=== PATIENT | female | born 1950 | race Caucasian/White ===

== ENCOUNTER → 2020-01-24 11:46 | Outpatient (CLI) | payer MEDICARE, OTHER, SELFPAY | PROVIDERS: PCP Family Medicine; Referring Provider Nurse Practitioner Family; Visit Provider Nurse Practitioner Family | DX: Z11.59 Encounter for screening for other viral diseases (principal) | CPT/HCPCS: 87635; G2023; U0003 ==

== ENCOUNTER → 2024-07-17 | Outpatient (CLI) | payer MEDICARE, OTHER, SELFPAY ==
--- NOTE | 2024-07-17 09:52 | NM_ITS ---
CLINICAL: 73-year-old female with history of hypercalcemia, clinical hyperparathyroidism. 99m Tc SESTAMIBI DUAL PHASE PARATHYROID SCINTIGRAPHY COMPARISON: None available FINDINGS: Following the intravenous administration of 27.6 mCi of 99m Tc sestamibi, image acquisitions of the anterior neck at 15 minutes and 3.0 hours post radiopharmaceutical provision reveal: 1. Immediate static blood pool acquisitions demonstrate uniform distribution of the radiotracer in the right-left lobes of a [id number] thyroid gland. 2. Delayed images depict symmetric delayed washout of the radiopharmaceutical without focal retention of the radiotracer readily identified on late imaging. NM/Parathyroid Scan IMPRESSION: 1. NEGATIVE EXAMINATION. There is no scintigraphic evidence of parathyroid adenoma on the present evaluation. 2. Incomplete-delayed washout of the radiopharmaceutical from the entire functioning thyroid colloid may be secondary to multinodular goiter, chronic lymphocytic thyroiditis. (Pablo, [employer] 19: 601, 1999). Electronically Signed: Richy Langford DO at 18:27 EST ,
== END | disposition home or self-care (01) ==
PROVIDERS: PCP Family Medicine; Referring Provider Internal Medicine Endocrinology, Diabetes & Metabolism; Visit Provider Internal Medicine Endocrinology, Diabetes & Metabolism
DX: E21.0 Primary hyperparathyroidism (principal)
CPT/HCPCS: 78070; A9500